=== PATIENT | male | born 1965 | race Caucasian/White ===

== ENCOUNTER 2017-05-31 01:31 | Emergency (ER) | payer SELFPAY ==
[~2017-05-31] VITALS: Ht 170.2 cm; Wt 79.4 kg
--- NOTE | ~2017-05-31 | CT71 ---
[facility] A Service of [facility] RADIOLOGY TEXT RESULTS PATIENT: ARNOLD DOVE LOCATION: [facility] : 67 UNIT #: [id number] AGE: [address]: Trey Iniguez MD SEX: M ORDER DR: [id number] [facility] [address] [place], [place] [address] [id number] E MR#: [id number] Acc #: [id number] NAME: ARNOLD DOVE : 1965 SEX: M STUDY DATE/TIME: 05/31/2017 03:44 UNIT: [facility] ROOM: STUDY DESCRIPTION: CT Head Wo Contrast Attending Physician: Trey Iniguez M.D. Ordering Physician: Trey Iniguez M.D. Primary Care Physician: Primary Care Physician No MEDICAL IMAGING REPORT This report is preliminary unless electronic signature is present EXAM Head CT, 05/31 at 03:44 INDICATION Migraine headache for 2 days. Photophobia. Dizziness. TECHNIQUE This CT exam was performed with one or more of the following radiation dose reduction techniques: automatic exposure control, adjustment of mA and/or kV according to patient size, and iterative reconstruction. COMPARISON None FINDINGS Axial noncontrast images were obtained from the skull base to the vertex. Ventricular size and configuration are normal. There is no evidence of acute infarct or hemorrhage. There are no extra-axial fluid collections. No mass lesion or mass effect is seen. There are no skull fractures. IMPRESSION Normal noncontrast head CT. Dictated by... Aleksandr Brennan Jr., M.D. THIS IS AN ELECTRONICALLY VERIFIED REPORT Aleksandr Brennan Jr., M.D. at 05/31/2017 8:51 PM WILFRIDO/odalys TD: 05/31/2017 12:38 JOB #: [id number] [facility] A Service of [facility] RADIOLOGY TEXT RESULTS PATIENT: ARNOLD DOVE LOCATION: [facility] : 67 UNIT #: [id number] AGE: [address]: Trey Iniguez MD SEX: M ORDER DR: MEDICAL IMAGING REPORT Page 1 of 1 COPY
[2017-05-31 04:16] LABS: BUN/CREATININE RATIO 19.09; CALCIUM SERUM 8.9 mg/dL (8.4-10.2); CREATININE SERUM 1.1 mg/dL (0.6-1.4); GLOM FILT RATE Estimated 77.9 mL/min (>60); POTASSIUM 3.5 mmol/L (3.5-5.1)
== END 2017-05-31 05:20 | disposition home or self-care (01) ==
LOC: CED 01:31
PROVIDERS: Emergency Medicine
DX: R51 Headache (principal)
CPT/HCPCS: 36415; 70450; 80048; 96361; 96374; 96375; 99284; J0780; J1200; J1885

== ENCOUNTER 2017-07-08 13:04 | Emergency (ER) | payer OTHER ==
[~2017-07-08] VITALS: Ht 170.2 cm; Wt 81.6 kg
--- NOTE | ~2017-07-08 | EKG ---
PATIENT: ARNOLD DOVE UNIT #: [id number] Ventricular Rate: 69 BPM Atrial Rate: 69 BPM P-R Interval: 158 ms QRS Duration: 92 ms Q-T Interval: 394 ms QTC Calculation(Bezet): 422 ms P Rye: 44 degrees Calculated R Rye: 33 degrees Calculated T Rye: 29 degrees Diagnosis Line: Diagnosis Line: Normal sinus rhythm Diagnosis Line: Normal ECG Diagnosis Line: No previous ECGs available Diagnosis Line: Confirmed by MOIRA LOMBARDI MD ([id number]) on 07/09/2017 Diagnosis Line: 7:16:12 PM INTERPRETING MD: HARJIT LUCIANO
--- NOTE | ~2017-07-08 | CT16 ---
[facility] A Service [facility] RADIOLOGY TEXT RESULTS PATIENT: ARNOLD DOVE LOCATION: [facility] : 67 UNIT #: [id number] AGE: [address]: Xuan Morales MD SEX: M ORDER DR: [id number] [id number] [facility] [place] [facility]. [place], [place] [address] [id number] E MR#: [id number] Acc #: [id number] NAME: ARNOLD DOVE : 1965 SEX: M STUDY DATE/TIME: 07/08/2017 17:18 UNIT: [facility] ROOM: STUDY DESCRIPTION: CT Angio Chest for PE Attending Physician: Xuan Morales M.D. Ordering Physician: Todd Edwards Aprn Primary Care Physician: No Primary Care Physician MEDICAL IMAGING REPORT This report is preliminary unless electronic signature is present EXAM CT chest PE protocol. HISTORY Difficulty breathing, onset today. TECHNIQUE Axial images performed through the chest following IV contrast. 3-D coronal and sagittal reconstructed images reviewed. This CT exam was performed with one or more of the following radiation dose reduction techniques: automatic exposure control, adjustment of mA and/or kV according to patient size, and iterative reconstruction. FINDINGS Evidence of centrilobular emphysema with bronchial thickening. No acute airspace disease or consolidation. No effusions. No mass lesions. Mild tracheobronchomegaly. Normal enhancement of the pulmonary arteries. No evidence of embolus. Heart size within normal limits. No adenopathy. Aorta free dissection or aneurysm. Upper abdomen unremarkable. Osseous structures demonstrate mild degenerative changes. Thoracic inlet unremarkable. IMPRESSION 1. No acute intrathoracic abnormality identified. 2. Diffuse lung disease with mild centrilobular emphysema. Dictated by... [facility] A Service [facility] RADIOLOGY TEXT RESULTS PATIENT: ARNOLD DOVE LOCATION: [facility] : 67 UNIT #: [id number] AGE: [address]: Xuan Morales MD SEX: M ORDER DR: J. Jona Ballesteros, M.D. THIS IS AN ELECTRONICALLY VERIFIED REPORT See Ballesteros M.D. at 07/09/2017 2:21 PM FOREIGN/vane TD: 07/08/2017 22:19 JOB #: [id number] MEDICAL IMAGING REPORT Page 1 of 1 COPY
[2017-07-08 15:52] LABS: POC - CKMB 1.3 ng/mL (0.0-7.9); POC - TROPONIN <0.05 ng/mL (<=0.05)
[2017-07-08 15:58] LABS: BASOPHIL% 0.4 % (0-2.5); EOSINOPHIL# 0.2 X10e3 (0-0.7); EOSINOPHIL% 2.3 % (0.0-7.0); HEMATOCRIT 42.9 % (38.0-50.0); HEMOGLOBIN 14.8 gm/dL (13.0-16.0); LYMPHOCYTE# 1.4 X10e3 (1.0-3.5); LYMPHOCYTE% 20.8 % (17.0-45.0); MEAN CELL VOLUME 89.9 FL (83-96); MEAN CORPUSCULAR HGB CONC 34.5 g/dL (30-36); MEAN PLATELET VOLUME 7.1 FL (6.5-11.5); MONOCYTE# 0.7 X10e3 (0-1.0); MONOCYTE% 10.6 % (3.0-12.0); NEUTROPHIL# 4.5 X10e3 (1.5-7.1); NEUTROPHIL% 65.9 % (40-75); PLATELET COUNT 231 X10e3 (140-420); RED BLOOD COUNT 4.78 X10e (3.90-5.60); RED CELL DISTRIBUTION WIDTH 13.6 % (11.0-15.5); WHITE BLOOD COUNT 6.9 X10e3 (4.0-10.5)
[2017-07-08 16:04] LABS: DIFF IND NO
[2017-07-08 16:18] LABS: BUN/CREATININE RATIO 15.45; CALCIUM SERUM 8.8 mg/dL (8.4-10.2); CREATININE SERUM 1.1 mg/dL (0.6-1.4); GLOM FILT RATE Estimated 77.9 mL/min (>60); POTASSIUM 4.2 mmol/L (3.5-5.1)
[2017-07-08 16:28] LABS: INR 0.9; PARTIAL THROMBOPLASTIN TIME 30.8 SECONDS (23.5-31.3); PROTHROMBIN TIME (PATIENT) 10.3 SECONDS (10.0-11.7)
[2017-07-08 17:54] LABS: POC - CKMB <1.0 ng/mL (0.0-7.9); POC - TROPONIN <0.05 ng/mL (<=0.05)
== END 2017-07-08 18:07 | disposition home or self-care (01) ==
LOC: CFTX 13:04 → CED 13:04 → CFTX 15:13 → CED 18:07
PROVIDERS: Nurse Practitioner Family; Student in an Organized Health Care Education/Training Program
DX: R05 Cough (principal); M25.511 Pain in right shoulder; F17.210 Nicotine dependence, cigarettes, uncomplicated; Z86.711 Personal history of pulmonary embolism
CPT/HCPCS: 36415; 71275; 80048; 82553; 83880; 84484; 85025; 85610; 85730; 93005; 96360; 96361; 99284; Q9967